=== PATIENT | male | born 1950 | race Caucasian/White ===

== ENCOUNTER 2022-06-29 06:53 | Day surgery (SDC) | payer MEDICARE ==
[2022-06-24 11:33] LABS: BASOPHILS # (AUTO) 0.1 X10'3 (0-0.2); BASOPHILS % (AUTO) 1.2 % (0-1); EOSINOPHILS # (AUTO) 0.1 X10'3 (0-0.9); EOSINOPHILS % (AUTO) 1.6 % (0-6); LYMPHOCYTES # (AUTO) 1.2 X10'3 (1.1-4.8); LYMPHOCYTES % (AUTO) 17.3 % (21-51); MEAN CORPUSCULAR HEMOGLOBIN 31.2 PG (27.0-31.0); MEAN CORPUSCULAR VOLUME 91.6 FL (78-98); MEAN PLATELET VOLUME 7.2 FL (7.4-10.4); MONOCYTES # (AUTO) 0.7 X10'3 (0-0.9); MONOCYTES % (AUTO) 9.7 % (2-12); NEUTROPHILS # (AUTO) 4.8 X10'3 (1.8-7.7); NEUTROPHILS % (AUTO) 70.2 % (42-75); PRE OP HEMATOCRIT 45.6 % (42.0-52.0); PRE OP HEMOGLOBIN 15.5 g/dL (14.0-17.9); PRE OP PLATELET COUNT 253 X10'3 (140-440); RED BLOOD COUNT 4.98 X10'6 (4.70-6.10); RED CELL DISTRIBUTION WIDTH 12.7 % (11.5-14.5)
[2022-06-24 11:37] LABS: CLARITY,URINE CLEAR (Clear); COLOR,URINE YELLOW (Yellow); GLUCOSE, URINE NEGATIVE (Neg); KETONES,URINE NEGATIVE (Neg); LEUKOCYTE ESTERASE ,URINE NEGATIVE (Neg); NITRITES, URINE NEGATIVE (Neg); OCCULT BLOOD,URINE NEGATIVE (Neg); PROTEIN,URINE NEGATIVE (Neg); UROBILINOGEN,URINE 0.2 E.U/dL (0.2-1.0)
[2022-06-24 11:39] LABS: UA COLLECTION TYPE CLN CATCH MIDSTREAM
[2022-06-24 11:47] LABS: ALBUMIN 3.8 G/DL (3.4-5.0); ALKALINE PHOSPHATASE 62 IU/L (46-116); BLOOD UREA NITROGEN 15 MG/DL (7-18); CALCIUM 9.3 MG/DL (8.5-10.1); CHLORIDE 102 MMOL/L (99-107); CREATININE 0.94 MG/DL (0.60-1.10); PRE OP ALT 29 U/L (30-65); PRE OP ANION GAP 7 (8-16); PRE OP AST 22 U/L (10-37); PRE OP BILIRUB, TOTAL 0.7 MG/DL (0.0-1.0); PRE OP GLUCOSE 94 MG/DL (70-104); PRE OP POTASSIUM 4.4 MMOL/L (3.4-5.1); PRE OP SODIUM 136 MMOL/L (135-145); TOTAL CARBON DIOXIDE 27.1 MMOL/L (24-32); TOTAL PROTEIN 7.7 G/DL (6.4-8.2); eGFR 79 ML/MIN
[~2022-06-29] VITALS: Ht 177.8 cm; Wt 111.0 kg
[2022-06-29] VITALS (20 sets, daily range): BP systolic 123–156; BP diastolic 62–95
[~2022-06-29 06:53] MED LIST: AMLO-380 PO; ASCO-336 PO; BUPIVAcaine/PF 2.5 mg/ml (0.25%) 30ml vial ONE; CHOL100046 PO; VITA-268 PO; ceFAZolin inj. 2,000 MG in dextrose 5%-water 100 ML IV ONE; famotidine 20mg tablet PO ONE; ringers solution, lacted 1,000 ML IV SCH
[2022-06-29] MEDS ORDERED: fentaNYL/PF 50MCG/1 ML 2ML syringe ONE ×2 (10:03→12:55)
[2022-06-29] MEDS ORDERED: dexamethasone sod phosphate 4mg/ml inj. ONE (10:06)
[2022-06-29] MEDS ORDERED: LIDOcaine 2% (20mg/ml) 5ml vial ONE (10:06)
[2022-06-29] MEDS ORDERED: propofol inj 20 ML IV ONE (10:06)
[2022-06-29] MEDS ORDERED: rocuronium 10mg/ml inj IV ONE ×2 (10:06→10:39)
[2022-06-29] MEDS ORDERED: ringers solution, lacted 1,000 ML IV SCH (10:10)
[2022-06-29] MEDS ORDERED: ondansetron/PF 4mg/2ml inj IV PRN (10:10)
[2022-06-29] MEDS ORDERED: meperidine/PF 25mg/ml syringe IV PRN ×2 (10:10)
[2022-06-29] MEDS ORDERED: HYDROmorphone/PF 0.2 MG/ML SYRINGE IV PRN ×2 (10:10)
[2022-06-29] MEDS ORDERED: neostigmine methylsulfate 1 MG/ML 10ml vial ONE (10:39)
[2022-06-29] MEDS ORDERED: sevoflurane 250ml liquid IH ONE (10:39)
[2022-06-29] MEDS ORDERED: glycopyrrolate 0.2mg/ml inj ONE (11:59)
[2022-06-29] MEDS ORDERED: ondansetron/PF 4mg/2ml inj ONE (11:59)
[2022-06-29] MEDS ORDERED: acetaminophen 1,000mg/100ml IV 100 ML IV ONE (12:20)
[2022-06-29] MEDS ORDERED: sugammadex 200mg/2ml injection IV ONE (12:53)
--- NOTE | 2022-06-29 13:08 | NUR ---
Received from OR via [facility], accompanied by Anesthesiologist and report given by CELINE Anesthesiologist. PATIENT [id number], ABDOMEN PAIN OF 04/03 NOTED AND WILL MEDICATE, V/S WNL, PIV 20G RFA, DERMABONDED LAPS SITES CLOSED CDI TO ABDOMEN. Addendum: 06/29/22 at 1355 by Will Hussein RN Amended: Links added.
[2022-06-29] MEDS ORDERED: fentaNYL/PF 50MCG/1 ML 2ML syringe IV PRN (13:20)
[2022-06-29] MEDS: fentaNYL/PF 50MCG/1 ML 2ML syringe IV PRN ×2 (13:26→13:37)
--- NOTE | 2022-06-29 16:15 | NUR ---
PATIENT URINATED 50 CC OF CLEAR YELLOW URINE. CECILIA PERFORMED URINARY BLADDER SCANNER WITH 65 CC OF URINE NOTED. Addendum: 06/29/22 at 1639 by Will Hussein RN Amended: Links added.
[2022-06-29] MEDS ORDERED: HYDROcodone/acetaminophen 10/325mg tab PO ONE (16:20)
--- NOTE | 2022-06-29 16:38 | NUR ---
ALL DISCHARGE CRITERIA HAS BEEN MET. VSS, PAIN AT A TOLERABLE LEVEL, VOIDING AND ABLE TO SAFELY AMBULATE AND TRANSFER SELF. IV TAKEN OUT WITHOUT ANY COMPLICATIONS. ALL DISCHARGE INSTRUCTIONS COVERED WITH PATIENT AND ALL QUESTIONS ANSWERED. PATIENT TAKEN OUT VIA WHEELCHAIR WITH ALL BELONGINGS TO PERSONAL VEHICLE WHERE FAMILY DROVE PATIENT HOME. Addendum: 06/29/22 at 1646 by Will Hussein RN Amended: Links added.
== END 2022-06-29 16:38 | disposition home or self-care (01) ==
LOC: PAS 06:53
PROVIDERS: ATTEND Surgery
DX: K40.90 Unilateral inguinal hernia, without obstruction or gangrene, not specified as recurrent (principal); K66.0 Peritoneal adhesions (postprocedural) (postinfection); I10 Essential (primary) hypertension; Z79.899 Other long term (current) drug therapy; Z20.822 Contact with and (suspected) exposure to COVID-19; Z98.890 Other specified postprocedural states; Z90.49 Acquired absence of other specified parts of digestive tract; M19.90 Unspecified osteoarthritis, unspecified site; Z96.643 Presence of artificial hip joint, bilateral; Z82.49 Family history of ischemic heart disease and other diseases of the circulatory system
CPT/HCPCS: 36415; 49650; 80053; 81003; 82948; 85025; 87811; 93005; C1758; C1781; J0131; J0690; J1100; J1170; J2405; J2704; J2710; J3010; J3490; J7030; J7060; J7120; Z7506; Z7508; Z7512; A4215; A4618